=== PATIENT | male | born 1950 | race Caucasian/White ===

== ENCOUNTER 2016-05-29 18:39 | Emergency (ER) | payer MEDICARE ==
[2016-05-29] MEDS ORDERED: PREDNISONE 20 MG TABLET PO ONE (19:04)
[2016-05-29] MEDS ORDERED: OXYCODONE-ACETAMINOPHEN 5-325 MG TABLET PO ONE (19:04)
[2016-05-29] MEDS ORDERED: COLCHICINE 0.6 MG TABLET PO ONE (19:04)
--- NOTE | 2016-05-29 19:06 | ER Document Report ---
ED Medical Screen (RME) - General Chief Complaint: Foot Pain Stated Complaint: LEFT FOOT PAIN AND SWELLING Notes: 65-year-old male patient on no regular medications comes from complaining of severe pain to the left foot. He reports having gout in the right foot last week and thinks he may have stretched out a bone spur in the left foot by favoring the other foot when he walked. He has had gout off and on for many years, has never sought medical treatment, reports the pain and swelling usually goes away in about for 5 days. He has never had uric acid levels checked. Today the left foot is swollen, dorsal erythema. There is a swollen exquisitely painful area over the first metatarsal cuneiform joint region. I have greeted and performed a rapid initial assessment of this patient. A comprehensive ED assessment and evaluation of the patient, analysis of test results and completion of the medical decision making process will be conducted by additional ED providers. TRAVEL OUTSIDE OF THE [place] IN LAST 30 DAYS: No - Related Data Allergies/Adverse Reactions: No Known Allergies Allergy (Unverified 11/10/14 17:58) Past Medical History - Past Medical History Cardiac Medical History: Reports: Hx Hypertension Renal/ Medical History: Denies: Hx Peritoneal Dialysis Physical Exam - Vital signs Vitals: Temp Pulse Resp BP Pulse Ox 98.3 F 81 18 147/83 H 97 05/29/16 18:51 05/29/16 18:51 05/29/16 18:51 05/29/16 18:51 05/29/16 18:51 Course - Vital Signs Vital signs: Temp Pulse Resp BP Pulse Ox 98.3 F 81 18 147/83 H 97 05/29/16 18:51 05/29/16 18:51 05/29/16 18:51 05/29/16 18:51 05/29/16 18:51
[2016-05-29 19:30] LABS: ABSOLUTE BASOPHILS # (AUTO) 0.1 10^3/uL (0.0-0.2); ABSOLUTE EOSINOPHILS # (AUTO) 0.1 10^3/uL (0.0-0.6); ABSOLUTE LYMPHOCYTES (AUTO) 1.4 10^3/uL (0.5-4.7); ABSOLUTE MONOCYTES (AUTO) 0.8 10^3/uL (0.1-1.4); ABSOLUTE NEUT (AUTO) 5.1 10^3/uL (1.7-8.2); BASOPHILS % (AUTO) 0.7 % (0-2); EOSINOPHILS % (AUTO) 0.9 % (0-6); HEMOGLOBIN 15.6 g/dL (13.5-17.0); HGB HCT DIFFERENCE 1.8; MEAN CORPUSCULAR HEMOGLOBIN 30.6 pg (27.0-33.4); MEAN CORPUSCULAR HGB CONC 34.7 g/dL (32.0-36.0); MEAN CORPUSCULAR VOLUME 88 fl (80-97); MONOCYTES % (AUTO) 10.2 % (3-13); RED BLOOD COUNT 5.09 10^6/uL (4.35-5.55); RED CELL DISTRIBUTION WIDTH 12.9 % (11.5-14.0); SEGMENTED NEUTROPHILS % (AUTO) 69.2 % (42-78); WHITE BLOOD COUNT 7.4 10^3/uL (4.0-10.5)
[2016-05-29 19:52] LABS: ALANINE AMINOTRANSFERASE 51 U/L (21-72); ALBUMIN 4.9 g/dL (3.5-5.0); ALKALINE PHOSPHATASE 58 U/L (38-126); ANION GAP 15 (5-19); ASPARTATE AMINO TRANSFERASE 43 U/L (17-59); BILIRUBIN,DIRECT 0.4 mg/dL (0.0-0.4); BILIRUBIN,TOTAL 1.1 mg/dL (0.2-1.3); BLOOD UREA NITROGEN 20 mg/dL (7-20); CALCIUM 9.7 mg/dL (8.4-10.2); CARBON DIOXIDE 27 mmol/L (22-30); CHLORIDE 98 mmol/L (98-107); CREATININE RESULT 1.12 mg/dL (0.52-1.25); GLUCOSE 101 mg/dL (75-110); POTASSIUM 4.4 mmol/L (3.6-5.0); SODIUM 140.4 mmol/L (137-145); TOTAL PROTEIN 7.9 g/dL (6.3-8.2)
[2016-05-29] MEDS ORDERED: HYDROCODONE/ACETAMINOPHEN 5-325 MG 6 TAB/DSPK PO PRN (21:08)
--- NOTE | 2016-05-29 21:09 | ER Document Report ---
ED Extremity Problem, Lower - General Chief Complaint: Foot Pain Stated Complaint: LEFT FOOT PAIN AND SWELLING Mode of Arrival: Ambulatory Information source: Patient TRAVEL OUTSIDE OF THE [place] IN LAST 30 DAYS: No - HPI Patient complains to provider of: Pain Notes: Patient arrives today with complaints of left foot pain, redness, swelling. This pain started approximately 3 days ago. Patient denies any injuries. Patient reports he has a history of gout, he had a flareup of gout in his right foot last week and believes he was favoring his left foot which caused a possible flareup in the left foot. He denies any fevers. He denies any traumatic injury. He denies any numbness, tingling, weakness. No nausea vomiting diarrhea. No chest pain or shortness breath. He was seen at urgent care earlier today and reports having unremarkable x-rays. He has no other complaints at this moment. - Related Data Allergies/Adverse Reactions: No Known Allergies Allergy (Verified 05/29/16 21:07) Past Medical History - Social History Smoking Status: Unknown if Ever Smoked Family History: Reviewed & Not Pertinent Patient has suicidal ideation: No Patient has homicidal ideation: No - Past Medical History Cardiac Medical History: Reports: Hx Hypertension Renal/ Medical History: Denies: Hx Peritoneal Dialysis Review of Systems - Review of Systems -: Yes All other systems reviewed and negative Physical Exam - Vital signs Vitals: Temp Pulse Resp BP Pulse Ox 98.3 F 81 18 147/83 H 97 05/29/16 18:51 05/29/16 18:51 05/29/16 18:51 05/29/16 18:51 05/29/16 18:51 - Notes Notes: GENERAL: alert, cooperative, nontoxic, no distress. HEAD: normocephalic, atraumatic EYES: conjunctiva pink without discharge, no external redness or swelling. EARS: no external swelling, no external redness NOSE: atraumatic, no external swelling MOUTH/THROAT: mucous membranes moist and pink, posterior pharynx without erythema, swelling, exudate. No trismus or drooling. NECK: soft, supple, full range of motion, no meningismus. CHEST: no distress, lungs clear and equal throughout. No wheezing, rales, rhonchi. CARDIAC: regular rate and rhythm, no murmur, normal capillary refill, normal pulses. No peripheral edema noted. ABDOMEN: Soft, nontender. BACK: full range of motion, no CVA tenderness. EXTREMITIES: full range of motion of all extremities. Patient's noted to have some mild redness and swelling to the dorsum of the left foot with tenderness over the mid foot. No redness extending up the leg. Normal pulse and sensation distally. Full range of motion. NEURO: alert and oriented -3, no focal deficits, full range of motion of all extremities. PYSCH: appropriate mood, affect. Patient is cooperative. SKIN: pink, warm, dry, no rash. Course - Re-evaluation Re-evalutation: 05/29/16 21:07 Patient is nontoxic with stable vitals. Afebrile. Lab work is unremarkable. Patient has what appears to be a gout flareup in the left foot. He will be treated as such. He was instructed to follow-up with his primary care doctor for uric acid testing and potentially to obtain uric acid lowering medications due to recent flareups of possible nail. Follow-up sooner for increased pain, fever, increased redness, or any further concerns. 05/29/16 21:09 The patient is noted to have elevated blood pressure during today's emergency department visit. The patient was informed of this finding. The patient was instructed that this may be related to pre-hypertension and requires further evaluation with a primary care provider. The patient has no hypertensive symptoms at this time. - Vital Signs Vital signs: Temp Pulse Resp BP Pulse Ox 98.3 F 81 18 147/83 H 97 05/29/16 18:51 05/29/16 18:51 05/29/16 18:51 05/29/16 18:51 05/29/16 18:51 - Laboratory Result Diagrams: 05/29/16 19:23 05/29/16 19:23 Discharge - Discharge Clinical Impression: Gout Qualifiers: Gout site: foot Gout etiology: unspecified cause Laterality: left Chronicity: acute Qualified Code(s): M10.9 - Gout, unspecified Condition: Stable Disposition: HOME, SELF-CARE Instructions: Gout ([facility]), Gout Diet ([facility]) Additional Instructions: Take medications as prescribed. Follow-up with your doctor for uric acid testing at the next available appointment. Follow-up sooner if having increasing pain, fever, increased redness, or for any further concerns. Your blood pressure was elevated during today's visit. Have this rechecked with your doctor. The medication you were prescribed today may cause drowsiness. Do not drive or operate heavy machinery while taking this medication. Prescriptions: Prednisone 10 mg PO DAILY #15 tablet Forms: Elevated Blood Pressure
[2016-05-29 21:14] VITALS: BP 124/67
== END 2016-05-29 21:23 | disposition home or self-care (01) ==
LOC: ER 18:39
DX: M10.9 Gout, unspecified (principal); M79.672 Pain in left foot; I10 Essential (primary) hypertension
CPT/HCPCS: 99283; 36415; 84550; 85025; 80053; A9270 ×4; J7512